=== PATIENT | male | born 2000 ===

== ENCOUNTER 2020-07-14 21:00 | Emergency (ER) | payer SELFPAY ==
[2020-07-14 23:08] LABS: Basophils % (Auto) 0.1 % (0.0-1.8); Eosinophils % (Auto) 0.3 % (0.0-4.3); Hematocrit 45.7 % (35.5-45.6); Lymphocytes # (Auto) 1.6 K/mm3 (1.2-5.4); Lymphocytes % (Auto) 11.5 % (13.4-35.0); Mean Corpuscular HGB Conc 35 % (32-34); Mean Corpuscular Volume 85 fl (84-94); Monocytes # (Auto) 1.1 K/mm3 (0.0-0.8); Monocytes % (Auto) 7.9 % (0.0-7.3); Platelet Count 311 K/mm3 (140-440); Red Blood Count 5.35 M/mm3 (3.65-5.03); Red Cell Distribution Width 12.4 % (13.2-15.2)
[2020-07-14 23:21] LABS: Blood Urea Nitrogen 18 mg/dL (9-20); Calcium 9.4 mg/dL (8.4-10.2); Hemolysis Index 42
[2020-07-14 23:27] LABS: BUN/Creatinine Ratio 26
[2020-07-15] MEDS ORDERED: oxyCODONE /ACETAMINOPHEN 5-325MG TAB PO ONE (00:06)
[2020-07-15] MEDS ORDERED: ONDANSETRON 4 MG/2 ML INJ IV ONE (00:06)
[2020-07-15] MEDS ORDERED: ONDANSETRON 4 MG ODT TAB PO ONE (00:26)
[2020-07-15 00:36] VITALS: BP 120/71
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
== END 2020-07-15 01:19 | disposition home or self-care (01) ==
LOC: ED 21:00
DX: R73.9 Hyperglycemia, unspecified (principal); Z79.899 Other long term (current) drug therapy; V49.49XA Driver injured in collision with other motor vehicles in traffic accident, initial encounter; Y92.410 Unspecified street and highway as the place of occurrence of the external cause; Y93.89 Activity, other specified; Y99.8 Other external cause status
CPT/HCPCS: 36415; 71260; 74160; 80048; 85025; 99284; Q9967; J2405; Q0162